=== PATIENT | female | born 1930 | race Caucasian/White ===

== ENCOUNTER 2019-04-17 22:09 | Emergency (ER) | payer MEDICARE, OTHER ==
--- NOTE | 2019-04-17 22:40 | ED Physician Documentation ---
General Adult - HPI Stated Complaint: Fever, possible MS changes Chief Complaint: General Adult Additional Information: Patient presents to ED via EMS from intermediate with fever (101.3), sore throat, headache, foul smelling urine and bug bite on right axilla. Family member reports patient has been less responsive today, especially when she had a fever. Onset: hours (12) Timing: still present Severity: mild - ROS CONST: fever EYES/ENT: sore throat CVS/RESP: denies: chest pain, shortness of breath GI/: denies: problems urinating MS/SKIN/LYMPH: denies: ankle swelling NEURO/PSYCH: headache - PAST HX Past History: none Other History: none Surgeries/Procedures: none Allergies/Adverse Reactions: Allergies Allergy/AdvReac Type Severity Reaction Status Date / Time egg Allergy Verified 04/17/19 22:39 Fish Containing Products Allergy Verified 04/17/19 22:39 Penicillins Allergy Verified 04/17/19 22:39 strawberry Allergy Verified 04/17/19 22:39 tomato Allergy Verified 04/17/19 22:39 Home Medications: Ambulatory Orders Medication Instructions Recorded Acetaminophen [Tylenol] 650 mg PO TID 04/17/19 Aspirin [Aspir-Low] 81 mg PO DAILY 04/17/19 Atorvastatin Calcium 10 mg PO HS 04/17/19 Calcium Carbonate/Vitamin D3 1 tab PO DAILY 04/17/19 [Calcium 600-Vit D3 400 Caplet] Citalopram Hydrobromide 10 mg PO DAILY 04/17/19 [Citalopram HBr] Fluticasone Propionate [Flovent 50 50 mcg MIRIAM BID 04/17/19 Mcg Diskus] Fluticasone Propionate [Flovent 1 puff IH BID 04/17/19 Hfa] Ibuprofen 400 mg PO DAILY 04/17/19 Levothyroxine Sodium 5 mcg PO DAILY 04/17/19 Loratadine 10 mg PO DAILY 04/17/19 Melatonin 3 mg PO HS 04/17/19 Memantine HCl 10 mg PO BID 04/17/19 Montelukast Sodium [Singulair] 10 mg PO HS 04/17/19 Multivitamin [Daily Multiple 1 tab PO DAILY 04/17/19 Vitamin] Omeprazole 20 mg PO AC15 04/17/19 Polyvinyl Alcohol [Artificial 2 drop TOP BID 04/17/19 Tears] - SOCIAL HX Smoking History: non-smoker Alcohol Use: none Drug Use: none - FAMILY HX Family History: No - VITAL SIGNS Vital Signs: Vital Signs Temp Pulse Resp BP Pulse Ox 98.6 F 69 14 192/80 93 04/17/19 22:09 04/17/19 22:09 04/17/19 22:09 04/17/19 22:09 04/17/19 22:09 - REVIEWED ASSESSMENTS Nursing Assessment Reviewed: Yes Vitals Reviewed: Yes ED Results Lab/Radiology - Lab Results Lab Results: UA - Negative for infection. wbc 7.6, hgb 12.7, hct 37.4, plt 210 na 135, k 3.6, Cl 97, CO2 28, BUN 18, creat 1.00 alt 25, ast 75, alk ph 72, albumin 4.5 - Radiology Radiology Impressions: Report Submission Date: Apr 17, 2019 11:54:43 PM CDT Patient Study Name: EFRAIN MASTERS Date: Apr 17, 2019 11:23:55 PM CDT Modality Type: DX Gender: F Description: CHEST 1VIEW : 34 Institution: [facility] Physician: DOMINIQUE LOCKETT Portable chest History: Fever and history of histoplasmosis. findings: Innumerable small calcified granulomas are scattered throughout each lung. Mild thoracic scoliosis is observed. Heart size is normal. The lungs are mildly hyperinflated. There is no infiltrate or pleural effusion. 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 Electronically signed on Apr 17, 2019 11:54:43 PM CDT by: Marshall Berry - Orders Orders: ED Orders Category Date Time Status CBC/PLATELET/DIFF Routine Lab 04/17/19 Ordered CMP Routine Lab 04/17/19 Ordered UA W MICRO [UA W/MICRO IF INDICATED] Routine Lab 04/17/19 22:38 Ordered General Adult Physical Exam - PHYSICAL EXAM GENERAL APPEARANCE: no distress EENT: DEBBIE NECK: supple RESPIRATORY: no resp distress, chest non-tender, breath sounds normal CVS: reg rate & rhythm, heart sounds normal ABDOMEN: soft, normal bowel sounds, non-tender BACK: no CVA tenderness SKIN: warm/dry, normal color EXTREMITIES: non-tender, no evidence of injury, no edema NEURO: mood/affect nml, other (oriented to person) Discharge Clincal Impression: Viral syndrome Referrals: William Stokes [Primary Care Provider] - 2 Days Additional Instructions: 1. Tylenol 650mg every 4 hours as needed for pain/fever 2. Drink plenty of fluids to maintain proper hydration 3. Cool mist vaporizer with sleep 4. Follow up with PCP within 1 week 5. Return to the ER for new or worsening symptoms Condition: Stable Disposition: 01 HOME, SELF-CARE Decision to Admit: NO Date of Decison to Admit: 04/18/19 Decision Time: 00:00
[2019-04-17] MEDS ORDERED: hydrALAZINE HCL 20 MG/1 ML IVP ONE (23:55)
[2019-04-18 02:03] VITALS: BP 180/65
--- NOTE | 2019-04-18 05:35 | Diagnostic Imaging Report ---
DOMINIQUE LOCKETT [facility] [address] [facility].[address] [id number] Report Submission Date: Apr 17, 2019 11:54:43 PM CDT Patient Study Name: EFRAIN MASTERS Date: Apr 17, 2019 11:23:55 PM CDT Modality Type: DX Gender: F Description: CHEST 1VIEW : 34 Institution: [facility] Physician: DOMINIQUE LOCKETT Portable chest History: Fever and history of histoplasmosis. findings: Innumerable small calcified granulomas are scattered throughout each lung. Mild thoracic scoliosis is observed. Heart size is normal. The lungs are mildly hyperinflated. There is no infiltrate or pleural effusion. 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 Electronically signed on Apr 17, 2019 11:54:43 PM CDT by: Marshall HERZOG
[2019-04-18 06:34] LABS: APPEARANCE,URINE CLEAR (CLEAR); COLOR,URINE YELLOW (YELLOW); OCCULT BLOOD,URINE TRACE-INTACT (NEGATIVE); PH URINE 6.5 (5.0 - 8.0); UROBILINOGEN URINE 0.2 Eu (0.2-1.0)
[2019-04-18 06:35] LABS: eGFR (Non-African) > 60
[2019-04-18 06:35] LABS: BASOPHILS % 0.5 % (0.0-1.5); NEUTROPHILS # 4.8 # k/uL (1.4-7.7)
== END 2019-04-18 01:20 | disposition home or self-care (01) ==
LOC: ED 22:09
DX: B34.9 Viral infection, unspecified (principal)
CPT/HCPCS: 71045; 80053; 81002; 85025; 96374; 99284; J0360